=== PATIENT | male | born 1995 ===

== ENCOUNTER 2019-12-17 21:53 | Emergency (ER) ==
--- NOTE | 2019-12-17 22:34 | RADIOLOGY REPORT (SQ) ---
Left wrist radiographs: 12/17/2019 9:33 PM CDT TECHNIQUE: AP, lateral, oblique images of the left wrist were obtained. COMPARISON: None available HISTORY: 24-year-old patient with left wrist pain . FINDINGS: There are no findings to suggest an acute fracture or subluxation. The soft tissues are unremarkable. The scapholunate interval is within normal limits. The carpal arcs appear to be intact. IMPRESSION: There are no findings to suggest an acute fracture or subluxation of the left wrist.
== END 2019-12-17 23:45 | disposition left against medical advice (07) ==
LOC: ER 21:53
DX: Z53.21 Procedure and treatment not carried out due to patient leaving prior to being seen by health care provider (principal)